=== PATIENT | male | born 1965 | race Caucasian/White ===

== ENCOUNTER → 2022-02-23 | Outpatient (CLI) | payer OTHER ==
--- NOTE | 2022-02-23 19:55 | CT ---
EXAMINATION TYPE: CT sinus wo con DATE OF EXAM: 02/23/2022 COMPARISON: CT dated 08/29/2012 HISTORY: acute sinusitis CT DLP: 660.90 mGycm. Automated Exposure Control for Dose Reduction was Utilized. TECHNIQUE: CT scan of the sinuses is performed without contrast, axial images are obtained, coronal r eformatted images are also reviewed. FINDINGS: Deviated bony nasal septum convex to the left side. Mild mucosal thickening of the inferior aspect of the nasal fossa bilaterally. Paradoxical middle turbinates. Mucosal thickening of the infundibulum b ilaterally yet still patent. Irregular chronic calcification seen within the left maxillary sinus with central mucosal thickening and inseparable inferiorly from the root of adjacent tooth, likely representing chronic inflammatory changes of a dentigerous cyst at that location. Mucosal thickening at the alveolar recesses of the maxillary sinuses. Unremarkable frontal sinus, eth moid air cells and sphenoid sinus. Patent sphenoethmoidal recesses. Clear mastoid air cells. 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 Further ENT cons ultation can be considered. Grossly unremarkable orbits. 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 This has progressed compared to 2013 CT scan. Mild mucosal thickening of the maxillary sinuses. Unremarkable remainder of the paranasal sinuses. Ot her findings and recommendations as described above.
== END | disposition home or self-care (01) ==
LOC: RADCTMAIN 17:40
PROVIDERS: ATTEND Family Medicine
DX: J01.90 Acute sinusitis, unspecified (principal)
CPT/HCPCS: 70486

== ENCOUNTER → 2022-04-13 | Outpatient (CLI) | payer OTHER ==
--- NOTE | 2022-04-15 10:49 | US ---
EXAMINATION TYPE: US arterial LE multi level DATE OF EXAM: 04/13/2022 2:17 PM CLINICAL HISTORY: 71.9 PERIPHERAL VASCULAR DISEASE, UNSPECIFIED. Hx Left Illiac stent. Patient state s legs hurt while walking. Blood pressures taken twice. Ankle-Brachial Indices: Right: 1.0 Left: 0.7 Toe Brachial Indices: Right: 0.6 Left: 0.5 IMPRESSION: Abnormal left ROMARIO and TBI suggestive of diffuse atherosclerotic disease.
== END | disposition home or self-care (01) ==
LOC: RADUSWWP 12:38
PROVIDERS: ATTEND Family Medicine
DX: I73.9 Peripheral vascular disease, unspecified (principal)
CPT/HCPCS: 93923

== ENCOUNTER 2022-04-22 12:20 | Day surgery (SDC) | payer OTHER ==
[~2022-04-22 12:20] MED LIST: LACTATED RINGERS 1,000 ML IV SCH; LIDOCAINE 1% (10MG/ML) FOR IV START INTRADERMA PRN
[2022-04-22 13:34] VITALS: TEMP 97
[2022-04-22] MEDS ORDERED: PROPOFOL 10 MG/ML 20 ML VIAL IV ONE (14:48)
--- NOTE | 2022-04-22 15:26 | P.PCN ---
Date of Procedure: 04/22/22 Procedure(s) Performed: BRIEF HISTORY: Patient is a 56-year-old pleasant male scheduled for an elective colonoscopy as a part of positive cologuard he denies any GI symptoms.. PROCEDURE PERFORMED: Colonoscopy with snare polypectomy. PREOPERATIVE DIAGNOSIS: Positive cologuard. IV sedation per Anesthesia. PROCEDURE: After informed consent was obtained, the patient, was brought into the endoscopy unit. IV sedation was administered by Anesthesia under continuous monitoring. Digital rectal examination was normal. Initially the Olympus CF-160 flexible video colonoscope was then inserted in the rectum, gradually advanced into the cecum without any difficulty. Careful examination was performed as the scope was gradually being withdrawn. Ileocecal valve and the appendiceal orifice were visualized and appeared normal. Prep was excellent. Mucosa of the cecum, ascending colon, transverse colon, descending colon, sigmoid colon, and rectum appeared normal. Rectum there was a 3 mm polyp and 5 mm 3 polyps all removed by snare polypectomy. Retroflexion was performed in the rectum and no lesions were seen. The patient tolerated the procedure well. IMPRESSION: 3 mm, 5 mm 3 rectal polyps status post polypectomy Rest of the colon appeared normal RECOMMENDATIONS: Findings of this examination were discussed with the patient as his family.. He was advised to follow with the biopsy results. If the biopsy was adenoma he can have a repeat colonoscopy in 5 years.
[2022-04-22 15:37] VITALS: BP 118/70; PULSE 68; RESP 15
== END 2022-04-22 15:39 | disposition home or self-care (01) ==
LOC: ORWHC2ENDO 12:20
PROVIDERS: ATTEND Internal Medicine Gastroenterology
DX: K62.1 Rectal polyp (principal); E78.5 Hyperlipidemia, unspecified; I73.9 Peripheral vascular disease, unspecified; F17.200 Nicotine dependence, unspecified, uncomplicated; Z79.01 Long term (current) use of anticoagulants; Z79.82 Long term (current) use of aspirin; Z79.899 Other long term (current) drug therapy
CPT/HCPCS: 88305; 45385; J2704

== ENCOUNTER → 2023-08-11 | Outpatient (CLI) | payer OTHER ==
--- NOTE | 2023-08-14 07:20 | CTL ---
EXAMINATION TYPE: CT Low Dose Lung DATE OF EXAM ORDERED: 08/11/2023 HISTORY: . Lung cancer screening CT DLP: 136.[address] CTDI: 3.60 mGy Automated exposure control for dose reduction was used. SCREENING VISIT: COMPARISON: None TECHNIQUE: Low dose computed tomography scan was performed through the chest at 1 mm thick sections a nd reconstructed images in multiple planes at 1 mm and [address] DIAGNOSTIC QUALITY: Satisfactory FINDINGS: There is biapical scarring and pleural thickening. There is a 4 mm left apical nodule. Additional les s than 5 mm bilateral subpleural nodules. Groundglass 6 mm nodule right lower lobe superior segment. Additional punctate subpleural micronodule lower lobe. No pleural effusion or focal pneumonia. Pneumothorax. Aorta of normal caliber. Mild atherosclerotic change of the coronary arteries. Heart size normal. Tra ce pericardial fluid. Mild hypertrophic and degenerative changes spine. Assessment for adenopathy limited. Grossly no pathologic lymphadenopathy identified. Subcentimeter bilateral adrenal nodules too small to characterize but likely in the basis of benign a denoma. IMPRESSION: 1. Bilateral pulmonary nodules the majority measuring less than 5 mm. There is a 6 mm nodule in the r ight upper lobe axial image 101 series 4. [address] LUNG RAD AND CT CHEST RECOMMENDATION: Lung-Rad 3 Probably Benign: 6 month follow-up LDCT.
== END | disposition home or self-care (01) ==
LOC: RADCTMAIN 16:15
PROVIDERS: ATTEND Family Medicine
DX: Z12.2 Encounter for screening for malignant neoplasm of respiratory organs (principal); J44.9 Chronic obstructive pulmonary disease, unspecified; F17.210 Nicotine dependence, cigarettes, uncomplicated; R91.8 Other nonspecific abnormal finding of lung field
CPT/HCPCS: 71271

== ENCOUNTER → 2024-02-09 | Outpatient (CLI) | payer OTHER ==
--- NOTE | 2024-02-12 16:46 | CTL ---
EXAMINATION TYPE: CT Low Dose Lung DATE OF EXAM ORDERED: 02/09/2024 HISTORY: Current smoker, 40 pack-year history. Lung cancer screening CT DLP: 93.[address] CTDI: 2.5 mGy Automated exposure control for dose reduction was used. SCREENING VISIT: Follow-up COMPARISON: CT Low Dose Lung cancer screening 08/11/2023 TECHNIQUE: Low dose computed tomography scan was performed through the chest at 1 mm thick sections a nd reconstructed images in multiple planes at 1 mm and [address] DIAGNOSTIC QUALITY: Satisfactory FINDINGS: Nodules: Couple of punctate calcific granulomas identified within the left lower lobe. Stable left apical 4 mm pulmonary nodule (series 6, image 12). Stable 9 mm groundglass nodule within the superior segment of the right lower lobe when measured with similar technique (series 6 image 22). Additional less than 5 mm bilateral subpleural stable nodules. LUNGS: COPD: Severity: Mild Fibrosis: Severity: None Lymph nodes: None Other findings: Mild biapical pleural-parenchymal scarring. RIGHT PLEURAL SPACE: Effusion: None Calcification: None Thickening: None Pneumothorax: None LEFT PLEURAL SPACE: Effusion: None Calcification: None Thickening: None Pneumothorax: None HEART: Heart Size: Normal Coronary Calcification: Small Pericardial Effusion: None OTHER FINDINGS: Upper abdomen: None Bony thorax: None Supraclavicular region: None Other: None IMPRESSION: 1. Overall stable bilateral pulmonary nodules with majority measuring less than 5 mm. Stable 9 mm clara undglass nodule within the superior segment of the right upper lobe when measured with similar techni que. No new or enlarging pulmonary nodules. 2. Mild COPD changes. CT LUNG RAD AND CT CHEST RECOMMENDATION: Lung-Rad 2 Benign Appearance or Behavior: Continue annual sc reening with LDCT in 12 months. S Modifier (other clinically significant findings): None
== END | disposition home or self-care (01) ==
LOC: RADCTMAIN 15:15
PROVIDERS: ATTEND Family Medicine
DX: Z12.2 Encounter for screening for malignant neoplasm of respiratory organs (principal); J44.9 Chronic obstructive pulmonary disease, unspecified; F17.210 Nicotine dependence, cigarettes, uncomplicated; R91.8 Other nonspecific abnormal finding of lung field
CPT/HCPCS: 71271

== ENCOUNTER → 2024-02-28 | Outpatient (CLI) | payer OTHER ==
--- NOTE | 2024-02-28 15:11 | US ---
EXAMINATION TYPE: US kidneys/renal and bladder DATE OF EXAM: 02/28/2024 COMPARISON: NONE CLINICAL INDICATION: Male, 58 years old with history of M54.50 LOW BACK PAIN; UTI EXAM MEASUREMENTS: Right Kidney: 9.3 x 5.1 x 4.7 cm Left Kidney: 11 x 5.9 x 4.4 cm Right Kidney: No hydronephrosis or masses seen Left Kidney: No hydronephrosis or masses seen Bladder: anechoic Bilateral Jets seen: yes There is no evidence for hydronephrosis at this point in time. No nephrolithiasis is seen. Cortical medullary differentiation is maintained bilaterally. No masses are identified. The urinary bladder is anechoic. No urinary bladder wall thickening identified. Bilateral ureteral jets are seen. IMPRESSION: No hydronephrosis or nephrolithiasis.
== END | disposition home or self-care (01) ==
LOC: RADUSWWP 13:40
PROVIDERS: ATTEND Family Medicine
DX: M54.50 Low back pain, unspecified (principal); N39.0 Urinary tract infection, site not specified
CPT/HCPCS: 76770